=== PATIENT | female | born 1960 | race African-American/Black ===

== ENCOUNTER 2018-04-29 08:31 | Outpatient (CLI) | payer BC ==
--- NOTE | 2018-04-29 10:29 | RAD ---
RIGHT HAND THREE VIEWS: HISTORY: A 58-year-old female with a history of right hand pain and swelling for two months without trauma. FINDINGS: Mild degenerative changes. No fracture or dislocation. IMPRESSION: Mild degenerative changes without fracture or dislocation. POS: [facility]
== END 2018-04-29 08:32 | disposition home or self-care (01) ==
LOC: MADRAD 08:31
PROVIDERS: ATTEND General Practice
DX: M79.89 Other specified soft tissue disorders (principal); M79.641 Pain in right hand; M19.041 Primary osteoarthritis, right hand